=== PATIENT | male | born 1985 | race Two or more races ===

== ENCOUNTER 2024-02-14 13:49 | Emergency (ER) | payer OTHER ==
[~2024-02-14] VITALS: Ht 200.7 cm; Wt 150.0 kg
[2024-02-14] MEDS: cyclobenzaprine 10mg tablet PO ONE (16:24)
[2024-02-14] MEDS: HYDROcodone/acetaminophen 5mg/325mg tablet PO ONE (16:24)
[2024-02-14] MEDS: ketorolac trometh 15mg/ml vial 15 MG/ML ML IM ONE (16:25)
[2024-02-14] MEDS: dexamethasone sod phosphate 10mg/ml inj IM STA (16:25)
[2024-02-14] MEDS ORDERED: LIDO700A32 TOP (17:38)
[2024-02-14] MEDS ORDERED: CYCL-1 PO (17:38)
[2024-02-14 17:59] VITALS: BP 146/100; PULSE 83; RESP 18; TEMP 97.9; O2SAT 94
== END 2024-02-14 18:00 | disposition home or self-care (01) ==
LOC: ER 13:50
DX: M54.2 Cervicalgia (principal); M54.50 Low back pain, unspecified; M54.6 Pain in thoracic spine; Z88.0 Allergy status to penicillin; V09.9XXA Pedestrian injured in unspecified transport accident, initial encounter; Y93.89 Activity, other specified; Y92.89 Other specified places as the place of occurrence of the external cause; Y99.8 Other external cause status
CPT/HCPCS: 72040; 72070; 72100; 99284

== ENCOUNTER 2025-06-15 15:30 | Emergency (ER) | payer MEDICAID, OTHER ==
[~2025-06-15] VITALS: Ht 200.7 cm; Wt 160.3 kg
[~2025-06-15 15:30] MED LIST: CYCL-1 PO; LIDO-52 TOP
[2025-06-15 15:34] VITALS: BP 175/96
--- NOTE | 2025-06-15 15:58 | RADIOLOGY REPORT ---
AP portable chest CLINICAL INDICATION: cough FINDINGS: Heart size is normal. No infiltrates or effusions. No bony thoracic abnormalities. IMPRESSION: 1. Normal chest x-ray.
[2025-06-15] MEDS ORDERED: ALBU8HFA INH (16:40)
[2025-06-15] MEDS ORDERED: AZIT-164 PO (16:40)
--- NOTE | 2025-06-15 16:43 | Physician Documentation ---
History of Present Illness ~ Chief Complaint: Cold, cough & congestion Stated Complaint: CONGESTION Time Seen by MD: 15:48 OK to notify your PCP?: Yes Primary Medical Doctor: NO PMD Source: patient Mode of Arrival: POV Exam Limitations: no limitations HPI Patient reports having body aches, congestion, dyspnea with exertion and productive cough for the past week. He is hypertensive in triage and reports that he has not taken his blood pressure medication and since he has not been feeling well. He denies having any chest pain. He does have a history of asthma and reports that he has been staying in a higher elevation this may be the cause of his shortness of breath with exertion. Have any inhalers and has not taken any medications for his symptoms yet. Medication Reconciliation Allergies: Coded Allergies: Penicillins (Verified Allergy, Unknown, 02/14/24) Scheduled Azithromycin (Zithromax), 1 TAB PO DAILY Cyclobenzaprine* (Cyclobenzaprine*), 1 TAB PO HS Lidocaine (Lidoderm), 1 PATCH TOP DAILY Prednisone* (Prednisone*), 2 TAB PO DAILY Scheduled PRN albuterol inhaler (Pro-Air Inhaler), 2 PUFFS INH Q4HPRN PRN for wheezing Past Medical History Past Medical History: Hypertension Review of Systems All Other Systems at this time: Reviewed and Negative Physical Exam Vital Signs: RN Vital Signs have been reviewed: Yes, Temperature: 98.1, Source: Oral, Heart Rate: 112, Respiratory Rate: 16, BP: 175/96, Pulse Oximetry: 97, Weight: 160.300 Oxygen Flow Rate: 0 Pulse Oximetry Reflects: adequate oxygenation Physical Exam General: Alert, no apparent distress. HEENT: PERRL, EOMI, no injection, moist mucous membranes. Neck: Full range of motion. Respiratory: no respiratory distress. Inspiratory and expiratory wheezes which do not clear with cough. Chest: No accessory muscle use. Cardiovascular: Regular rate and rhythm, no murmurs. Gastrointestinal: Soft, nontender, nondistended. Bowels sounds present. Extremities: Normal range of motion, no deformity. Neurologic: Oriented x4. Psychiatric: Normal mood and affect. Skin: Normal color, warm and dry. No edema, no ecchymosis. Progress Results/Orders Reviewed/noted all lab results: Yes Results/Orders Completed Orders - CLEOPATRA ROMO DIGITAL TECH Ipratropium/Albuterol Nebule (Ipratrop/A (06/15/25 16:37) Azithromycin Tablet (Zithromax Tablet) (06/15/25 16:40) Prednisone Tablet (Prednisone Tablet) (06/15/25 16:45) Medications Received in ER Medications (Trade) Dose Ordered Sig/Vianey Route PRN Reason Start Time Stop Time Status Last Admin Dose Admin (ipratrop/ albuterol 0.5-3(2.5) MG/3ml nebule) 3 ml ONCE STAT NEB 06/15/25 16:37 06/15/25 16:38 DC 06/15/25 16:44 3 ML (Zithromax tablet) 500 mg ONCE ONCE PO 06/15/25 16:40 06/15/25 16:42 DC 06/15/25 16:55 500 MG (predniSONE tablet) 40 mg ONCE ONCE PO 06/15/25 16:45 06/15/25 16:50 DC 06/15/25 16:55 40 MG Vital Signs 06/15/25 06/15/25 06/15/25 06/15/25 15:34 16:49 16:49 17:08 Temp 98.1 98.1 Pulse 112 96 98 Resp 16 18 20 B/P (MAP) 175/96 Pulse Ox 97 99 99 O2 Delivery Room Air* Room Air* O2 Flow Rate 0 0 0 FiO2 N/A N/A EKG/XRAY/CT/US/VASC/MRI Chest X-Ray : Additional Comments Chest x-ray: as interpreted by me; no large effusion, no large infiltrate, normal mediastinum. Medical Decision Making Additional information obtaine: old records Findings Exam reveals hypertensive in triage. Denies any cardiovascular symptoms such as chest pain. He does have some dyspnea on exertion but this has been going on since he has been having his congestion and cold-like symptoms. On exam he is having expiratory and inspiratory wheezes. He does not appear to be having any respiratory distress. Chest x-ray clear. Administered ipratropium/albuterol nebulizer which he reports improved his shortness of breath dramatically. Due to his history of asthma and symptoms, I will treat him for asthma exacerbation with respiratory infection. I have prescribed a Z-Mulugeta as well as prednisone and albuterol inhaler. First dose was given here in the department rest sent to the pharmacy. Differential Dx:Considerations: Include: Allergic rhinitis, Peritonsillar absc ess, Pneumonia, Pnuemonitis, Sinusitis, URI Departure Disposition: 01 HOME / SELF CARE / HOMELESS Impression: Primary Impression: Acute respiratory infection Additional Impression: Cough Condition: Stable Discharge Instructions: Cough, Adult Additional Instructions: Take all antibiotics and prednisone as prescribed. Use your inhaler as needed. However, you can take acetaminophen or ibuprofen to help with fevers and pain. Stay well hydrated and rested. Return to the emergency department if your fevers and chills continue to worsen after 5 days, if you develop worsening cough with thick sputum, are unable to stay hydrated, or have any new or concerning concerning symptoms. Contact your primary care provider in the next 2-3 days for re-evaluation and to make sure your symptoms are improving. Referrals: NO PRIMARY CARE PROVIDER (PCP) Prescriptions Prednisone* (Prednisone*) 20 Mg Tablet 2 TAB PO DAILY for 5 Days, #10 TAB Prov: CLEOPATRA ROMO 06/15/25 Azithromycin (Zithromax) 250 Mg Tablet 1 TAB PO DAILY, #5 TAB Prov: CLEOPATRA ROMO 06/15/25 albuterol inhaler (Pro-Air Inhaler) 8.5 Gm Inhaler 2 PUFFS INH Q4HPRN PRN for wheezing for 30 Days, #18 GM Prov: CLEOPATRA ROMO 06/15/25 Education Educated: Patient Educated regarding: diagnosis, treatment, prognosis, need for follow up Additional Comment Medical Screen Exam This patient recieved a medical screening examination. After reviewing the individual's medical complaints with presenting symptoms and performing an appropriate physical examination, it was determined that no immediate life- threatening emergency medical condition is present. This individual is also not a women having contractions. Signature Scribe Signature: . Attestation: Scribed for Cleopatra Romo by Cleopatra England NP . 06/15/25 16:42 Parts of this note were created using [employer] voice recognition software program. While efforts were made to correct any mistakes made by this voice recognition software program, nonsensical phrases may remain in this note. In addition, there may be errors and syntax, grammar, content and spelling. CLEOPATRA ROMO Jun 15, 2025 16:43
[2025-06-15] MEDS: ipratropium/albuterol 3ml nebule NEB STA (16:44)
[2025-06-15] MEDS ORDERED: PRED20TA PO (16:44)
[2025-06-15 16:49] VITALS: PULSE 96; PULSE 98; RESP 18; RESP 20; O2SAT 99
[2025-06-15 17:08] VITALS: TEMP 98.1
== END 2025-06-15 17:09 | disposition home or self-care (01) ==
LOC: ER 15:31
DX: J22 Unspecified acute lower respiratory infection (principal); R05.9 Cough, unspecified; I10 Essential (primary) hypertension; Z88.0 Allergy status to penicillin; Z79.899 Other long term (current) drug therapy
CPT/HCPCS: 71045; 94640; 99283; J7512; 94760